=== PATIENT | male | born 1985 | race Caucasian/White ===

== ENCOUNTER → 2017-04-13 | Outpatient (CLI) | payer OTHER ==
[~2017-04-13] MED LIST: ACET65TA OR; ALLE25CA OR; CIPR500T19 OR; FLAG500T OR; OXCA15HATB OR; TOPI100T OR; TRIL600T OR; VICO5TAB OR
--- NOTE | 2017-04-14 14:26 | REP ---
Clinical: Pain. Technique: AP, lateral, bilateral oblique and sunrise views left knee. Findings: The osseous structures and joint spaces are intact and normal. There is no evidence for acute fracture or dislocation. No joint effusion is appreciated. Surrounding soft tissues are unremarkable although sunrise view suggests prepatellar swelling which requires correlation. No subcutaneous emphysema or radiodense foreign body. Impression: Prepatellar swelling. No acute fracture or dislocation. Signed by Feng Cotton MD 04/13/2017 08:28 P
== END ==
LOC: M WUC 16:01
PROVIDERS: ATTEND Nurse Practitioner Family
DX: M25.562 Pain in left knee (principal)

== ENCOUNTER → 2017-04-26 | Outpatient (CLI) | payer OTHER ==
--- NOTE | 2017-04-26 14:07 | REP ---
Clinical: Posterior left knee pain. Technique: Real time ken scale and color Doppler evaluation using linear high frequency transducer. Findings: Directed ultrasound examination to the popliteal fossa demonstrates a normal, patent popliteal vein. No fluid collection or mass lesion is appreciated. There is no evidence of Cooper's cyst. Impression: Normal left popliteal fossa. Patent popliteal vein. No Cooper's cyst. Signed by Feng Cotton MD 04/26/2017 01:58 P
== END ==
LOC: M RAD 13:00
PROVIDERS: ATTEND Nurse Practitioner Family
DX: M25.562 Pain in left knee (principal)